=== PATIENT | male | born 1980 | race Caucasian/White ===

== ENCOUNTER 2022-06-10 21:31 | Emergency (ER) | payer OTHER ==
[2022-06-10] MEDS ORDERED: EPINEPHrine 1 MG/ML AMP ONE (21:56)
[2022-06-10] MEDS ORDERED: Famotidine/PF 20 mg/2ml Vial ONE (21:56)
[2022-06-10] MEDS ORDERED: methylPREDNISolone Sod Succ/PF 125 MG/2 ML VIAL ONE (21:56)
== END 2022-06-10 23:24 | disposition home or self-care (01) ==
LOC: CSHERS 21:31
DX: T78.1XXA Other adverse food reactions, not elsewhere classified, initial encounter (principal)
CPT/HCPCS: 93005; 96372; 96374; 96375; J0171; J2930; S0028